=== PATIENT | female | born 1935 | race African-American/Black ===

== ENCOUNTER 2018-07-20 12:37 | Outpatient (CLI) | payer MEDICARE, OTHER ==
--- NOTE | 2018-07-20 14:34 | ULT ---
LIMITED BILATERAL BREAST ULTRASOUND: Date: 07/20/18 PROVIDED CLINICAL HISTORY: Right breast palpable abnormality. FINDINGS: Limited sonographic interrogation was performed of the right breast in the region of palpable concern . There is a large, heterogeneous vascular mass present at the 6 o'clock location of the right breast in the region of palpable concern, measuring at least 4.7 cm in greatest dimension. Sonographic inte rrogation of the right axilla demonstrates an enlarged and cortically thickened right axillary lymph node measuring about 1.6 cm. Limited sonographic interrogation of the upper inner aspect of the left breast demonstrates an angula r, taller than wide, hypoechoic mass measuring about 7.0 mm in greatest dimension. Sonographic interr ogation of the left axilla demonstrates nonenlarged lymph nodes. IMPRESSION: 1. BIRADS Category 5 - Highly suspicious for malignancy. 2. Palpable right breast mass corresponds to a large, heterogeneous mass, and is highly suspicious f or breast malignancy. Enlarged and thickened right axillary lymph node suggests metastatic disease. 3. The 10 o'clock left breast mass is also suspicious for neoplasm. Surgical consultation is recommended. POS: OFF
== END 2018-07-20 12:38 | disposition home or self-care (01) ==
LOC: BICMAMMO 12:37
PROVIDERS: ATTEND Family Medicine
DX: N63.13 Unspecified lump in the right breast, lower outer quadrant (principal); Z80.3 Family history of malignant neoplasm of breast
CPT/HCPCS: 76642 ×2; 77066; G0279

== ENCOUNTER 2018-07-27 14:10 | Outpatient (CLI) | payer MEDICARE, OTHER | END 2018-07-27 14:11 | disposition home or self-care (01) | LOC: BICMAMMO 14:10 | PROVIDERS: ATTEND Specialist | DX: N63.23 Unspecified lump in the left breast, lower outer quadrant (principal) | CPT/HCPCS: 77065; G0279 ==

== ENCOUNTER 2018-08-10 08:56 | Outpatient (CLI) | payer MEDICARE, MEDICAID ==
--- NOTE | 2018-08-10 12:32 | PET ---
PET CT: HISTORY: Bilateral breast cancer. TECHNIQUE: A PET CT was performed from the skull base to the mid thigh after administration of 13 mCi of F18-FDG . FINDINGS: There is a large mass in the right breast which is hypermetabolic with a max SUV value of 8.7. There are prominent bilateral axillary lymph nodes, right greater than left. The largest is seen on the r ight measuring 1.6 cm in size. These lymph nodes on the right are metabolic but not hypermetabolic w ith a max SUV value of 1.9. No internal mammary lymph nodes are identified. No hypermetabolic activ ity is seen within the left breast. There are mildly enlarged bilateral inguinal lymph nodes demonstrating metabolic activity with a max SUV value of 1.8. No suspicious areas of hypermetabolic activity are seen within the neck. No intrathoracic areas of h ypermetabolic activity are seen. No suspicious areas of hypermetabolic activity are seen in the abdo men or pelvis. No suspicious osseous lesions are identified. Degenerative changes are seen in the s pine. Atherosclerotic calcifications are seen in the aorta. IMPRESSION: 1. There is a hypermetabolic right breast mass consistent with a right breast malignancy. 2. There are prominent bilateral axillary lymph nodes, right greater than left. These lymph nodes a re prominent but do not demonstrate hypermetabolic activity. However, the lymph nodes in the right a xilla, in particular, are round and enlarged and are suspicious for metastatic disease. POS: [facility]
== END 2018-08-10 08:57 | disposition home or self-care (01) ==
LOC: PET 08:56
PROVIDERS: ATTEND Internal Medicine Hematology & Oncology
DX: C50.911 Malignant neoplasm of unspecified site of right female breast (principal); C50.912 Malignant neoplasm of unspecified site of left female breast
CPT/HCPCS: 78815; A9552

== ENCOUNTER 2018-09-14 07:30 | Outpatient (CLI) | payer MEDICARE, MEDICAID ==
[2018-09-14 16:12] LABS: #Eosinphils 0.3 thou/uL (0.0-0.7); #Lymphocytes 2.5 thou/uL (1.20-3.40); #Monocytes 0.8 thou/uL (0.11-0.59); %Basophils 0.6 % (0.0-1.0); %Eosinophils 3.8 % (0.0-10.0); %Lymphocytes 32.9 % (21.0-51.0); %Monocytes 10.1 % (0.0-10.0); %Neutrophils 52.7 % (42.0-75.0); Hemoglobin 12.6 g/dL (12.0-16.0); Mean Corpuscular HGB CONC 32.4 g/dL (32.0-36.0); Mean Corpuscular Hemoglobin 30.9 pg (27.0-31.0); Mean Corpuscular Volume 95.3 fL (78.0-98.0); Mean Platelet Volume 8.4 fL (7.4-10.4); Platelet Count 201 thou/uL (130-400); RBC Distribution Width 12.3 % (11.5-14.5); Red Blood Cell (RBC) Count 4.09 mill/uL (4.20-5.40); White Blood Cell (WBC) Count 7.5 thou/uL (4.8-10.8)
[2018-09-14 16:30] LABS: Anion Gap 14 mmol/L (10-20); BUN (Urea Nitrogen) 13 mg/dL (9.8-20.1); Calc. Creatinine Clearance 0 mL/min (70-130); Calcium 9.5 mg/dL (7.8-10.44); Carbon Dioxide 25 mmol/L (23-31); Chloride 106 mmol/L (98-107); Estimated GFR-MDRD 83; Glucose 96 mg/dL (83-110); Potassium 4.3 mmol/L (3.5-5.1); Sodium 141 mmol/L (136-145)
--- NOTE | 2018-09-17 17:26 | EKG ---
Test Reason : Blood Pressure : / mmHG Vent. Rate : 058 BPM Atrial Rate : 058 BPM P-R Int : 192 ms QRS Dur : 088 ms QT Int : 416 ms P-R-T Axes : 041 001 048 degrees QTc Int : 408 ms Sinus bradycardia Cannot rule out Anterior infarct , age undetermined No previous ECGs available Confirmed by DR. Bonnie WARD MD ([id number]) on 09/17/2018 5:26:17 PM Referred By: NANO Confirmed By:DR. Bonnie WARD MD
== END 2018-09-14 07:31 | disposition home or self-care (01) ==
LOC: LABBT 07:30
PROVIDERS: ATTEND Specialist
DX: Z01.818 Encounter for other preprocedural examination (principal); C50.911 Malignant neoplasm of unspecified site of right female breast; C50.912 Malignant neoplasm of unspecified site of left female breast
CPT/HCPCS: 80048; 85025; 93005; 93010

== ENCOUNTER 2018-09-27 07:25 | Inpatient (IN) | payer MEDICARE, MEDICAID ==
[2018-09-27] MEDS ORDERED: Ketorolac Tromethamine 30 MG/ML VIAL ONE (10:47)
--- NOTE | 2018-09-27 11:35 | NM ---
LEFT BREAST LYMPHOSCINTIGRAPHY: Date: 09/27/18 HISTORY: Bilateral breast cancer. Malignant neoplasm of unspecified site of right female breast, malignant meng plasm of unspecified site of left female breast. FINDINGS: Planar images were obtained following the left periareolar injections of 440 microcuries technetium-99m filtered sulfur colloid in divided doses. Focally increased uptake is seen in the left axillary lymph node. IMPRESSION: Kress lymph node in the left axilla. POS: [facility]
[2018-09-27] MEDS ORDERED: Bupivacaine HCl 0.5%/Epinephrine 1:200,000/PF 30 ml Vial ONE (11:49)
[2018-09-27] MEDS ORDERED: Isosulfan Blue 50 MG/5 ML VIAL ONE (11:49)
[2018-09-27] MEDS ORDERED: Famotidine/PF 20 mg/2ml Vial ONE (11:52)
[2018-09-27] MEDS ORDERED: Fentanyl 100 MCG/2 ML VIAL ONE (11:52)
--- NOTE | 2018-09-27 12:45 | RAD ---
TWO VIEW CHEST: Comparison: 05-01-13 Clinical history: Pre-operative evaluation. FINDINGS: There is mild elevation of the left hemidiaphragm. The lungs are grossly clear. Cardiac silhouette is of normal size. Osseous degenerative change is present. IMPRESSION: No focal consolidation. POS: [facility]
[2018-09-27] MEDS ORDERED: Metoclopramide HCl 10 MG/2 ML VIAL ONE (13:14)
[2018-09-27] MEDS ORDERED: ePHEDrine 50 MG/ML VIAL ONE (13:14)
[2018-09-27] MEDS ORDERED: Glycopyrrolate 0.2 MG/ML 5 ML SYRINGE ONE (13:14)
[2018-09-27] MEDS ORDERED: PROPOFOL 200 MG/20 ML VIAL ONE (13:14)
[2018-09-27] MEDS ORDERED: Ondansetron PF 4 MG/2 ML Vial ONE (13:14)
[2018-09-27] MEDS ORDERED: Lidocaine 1% PF 5 ML VIAL ONE (13:14)
[2018-09-27] MEDS ORDERED: Rocuronium Bromide 10 MG/ML (10ML VIAL) ONE (13:14)
[2018-09-27] MEDS ORDERED: Ondansetron HCl/PF 4 MG/2 ML Vial IVP PRN (15:20)
--- NOTE | 2018-09-27 17:05 | PDOC.EVN ---
Event Note - Event Note Event Note: SPENCERGYMartha OnCall note: I was called to OR [address] Vuong for abnormal vulvar tissue. BXs sent Family aware Please see my full dictation
[2018-09-27] MEDS ORDERED: [UNRECOGNIZED DRUG - CODE] SLOW IVP PRN (17:10)
[2018-09-27] MEDS ORDERED: Dextrose 50% Abboject 50 ML SYRINGE SLOW IVP PRN (17:10)
[2018-09-27] MEDS ORDERED: Ondansetron PF 4 MG/2 ML Vial IVP PRN (17:10)
[2018-09-27] MEDS ORDERED: Dextrose 5% in Water 1,000 ML IV PRN (17:10)
[2018-09-27] MEDS ORDERED: Promethazine HCl 25 MG/ML VIAL IM PRN (17:10)
[2018-09-27] MEDS ORDERED: hydrALAZINE 20 MG/ML VIAL SLOW IVP PRN (17:10)
[2018-09-27 17:27] VITALS: BMI 25.8
[2018-09-27] MEDS ORDERED: Lactated Ringer's 1,000 ML IV SCH (18:15)
[2018-09-27] MEDS: Docusate 100 MG CAP PO SCH (20:40)
[2018-09-27] MEDS: Donepezil HCl 10 MG TAB PO SCH (20:40)
[2018-09-27] MEDS: Famotidine 20 MG TAB PO SCH (20:41)
[2018-09-27] MEDS ORDERED: Lactated Ringer's 500 ML IV SCH (23:30)
[2018-09-27] MEDS: Lactated Ringer's 1,000 ML IV SCH (23:35)
[2018-09-27 23:38] LABS: #Lymphocytes 1.2 thou/uL (1.20-3.40); #Monocytes 1.2 thou/uL (0.11-0.59); %Eosinophils 0.3 % (0.0-10.0); %Lymphocytes 9.6 % (21.0-51.0); %Monocytes 9.6 % (0.0-10.0); %Neutrophils 80.5 % (42.0-75.0); Hemoglobin 8.8 g/dL (12.0-16.0); Mean Corpuscular HGB CONC 31.9 g/dL (32.0-36.0); Mean Corpuscular Hemoglobin 31.1 pg (27.0-31.0); Mean Corpuscular Volume 97.6 fL (78.0-98.0); Mean Platelet Volume 8.1 fL (7.4-10.4); Platelet Count 179 thou/uL (130-400); RBC Distribution Width 12.3 % (11.5-14.5); Red Blood Cell (RBC) Count 2.83 mill/uL (4.20-5.40); White Blood Cell (WBC) Count 12.4 thou/uL (4.8-10.8)
[2018-09-27 23:59] LABS: Anion Gap 17 mmol/L (10-20); BUN (Urea Nitrogen) 16 mg/dL (9.8-20.1); Calc. Creatinine Clearance 48 mL/min (70-130); Calcium 8.6 mg/dL (7.8-10.44); Carbon Dioxide 21 mmol/L (23-31); Chloride 104 mmol/L (98-107); Estimated GFR-MDRD 58; Glucose 148 mg/dL (83-110); Potassium 4.5 mmol/L (3.5-5.1); Sodium 137 mmol/L (136-145)
--- NOTE | 2018-09-28 00:35 | PDOC.EVN ---
Event Note - Event Note Event Note: OBGYN INTRAOP CONSULT on 09/27/18 Time: approx 1515 Location OR3 Requesting : Luke I am still awaiting my dictated report space planner. However, to prevent delay in the record, I am completing this entry: This patient is an 83 yo AA female undergoing double mastectomy for breast CA. I was called because during placement of her dejesus catheter, the RN saw abnormal skin at the vulvar area. I was called at the end of the case for possible BX. The external vulvar area has white thickened, fragile tissue suspicious for vulvar CA. There is also a frond of suspected condyloma on the right side. This tissue is indurated and bleeds easily on contect. I sent several biopsies of this tissue to path. I confirmed that pathology had the samples. Order for eval placed by me. I discussed these BXs with the family, with Dr Vuong, after the procedure. They are aware that I/we suspect vulcar abnormalities/possible CA. Await results. Area rendered hemostatic with AgNo3 sticks and cautery on bovie mode.
[2018-09-28 06:11] LABS: #Lymphocytes 1.7 thou/uL (1.20-3.40); #Monocytes 0.9 thou/uL (0.11-0.59); #Neutrophils 6.3 thou/uL (1.40-6.50); %Basophils 0.4 % (0.0-1.0); %Eosinophils 0.2 % (0.0-10.0); %Lymphocytes 18.8 % (21.0-51.0); %Monocytes 10.4 % (0.0-10.0); %Neutrophils 70.2 % (42.0-75.0); Hemoglobin 8.6 g/dL (12.0-16.0); Mean Corpuscular HGB CONC 32.3 g/dL (32.0-36.0); Mean Corpuscular Hemoglobin 31.4 pg (27.0-31.0); Mean Corpuscular Volume 97.2 fL (78.0-98.0); Mean Platelet Volume 8.1 fL (7.4-10.4); Platelet Count 189 thou/uL (130-400); RBC Distribution Width 12.4 % (11.5-14.5); Red Blood Cell (RBC) Count 2.74 mill/uL (4.20-5.40)
[2018-09-28 06:32] LABS: Anion Gap 16 mmol/L (10-20); BUN (Urea Nitrogen) 20 mg/dL (9.8-20.1); Calc. Creatinine Clearance 48 mL/min (70-130); Calcium 8.8 mg/dL (7.8-10.44); Carbon Dioxide 22 mmol/L (23-31); Chloride 104 mmol/L (98-107); Estimated GFR-MDRD 59; Glucose 137 mg/dL (83-110); Potassium 4.9 mmol/L (3.5-5.1); Sodium 137 mmol/L (136-145)
--- NOTE | 2018-09-28 08:24 | CON ---
DATE OF CONSULTATION: 09/17/2018 TIME OF EVALUATION: Roughly 15:15, until 15:45. LOCATION: OR, #3. REASON FOR CONSULT: In brief, I was consulted by Dr. Heck, who was doing a double mastectomy on this elderly patient (83-year-old) with dementia and known breast cancer. During the placement of the Sofia catheter by the primary OR team, the dressmaking teacher nurse found abnormal vaginal tissue, which was discolored and indurated. It was also bleeding. Because of this external vulvar abnormality, Gynecology was consulted for biopsies. I arrived to the room after the patient had completed the double mastectomy and was being wrapped with the chest bandage. The patient's Sofia catheter was still in place during my assessment. We placed the patient in frogleg position and proceeded to do multiple biopsies (deep dermal) with a scalpel. The vulvar area had bilateral labia minora and majora discoloration with a firm, indurated, and grossly abnormal appearing tissue. There was also a small area that was suspicious for condyloma in the center and this was also excised. Biopsies were labeled right side and left side and sent to pathology. 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 At the end of the procedure, I rendered the area hemostatic with silver nitrate sticks as well as Bovie cautery using a setting of 20. No bleeding was noted. It is important to note that the area was prepped with Betadine prior to biopsies to maintain some sort of sterile technique. Dr. Heck and I discussed these findings with the patient's family in the lobby. I have a contact number for her daughter, whose name is "Tomorrow" and whose phone #[phone]. We will follow up the results and make appropriate followup at that time. I did tell the family that the patient will need referral to Gynecology, Oncology, likely Natacha Ramon, in the [place] if this is in fact a malignancy again. Job ID: [id number]
[2018-09-28] MEDS: Aspirin 81 mg Enteric Coated Tablet PO SCH (10:09)
[2018-09-28] MEDS: Famotidine 20 MG TAB PO SCH ×2 (10:09→21:07)
[2018-09-28] MEDS: Docusate 100 MG CAP PO SCH ×2 (10:09→21:07)
[2018-09-28] MEDS: Donepezil HCl 10 MG TAB PO SCH ×2 (10:09→21:07)
[2018-09-28] MEDS: HYDROcodone/Acetaminophen 7.5/325 mg Tablet PO PRN (10:09)
[2018-09-28] MEDS: Anastrozole 1 MG TAB PO SCH (14:00)
--- NOTE | 2018-09-28 14:01 | PDOC.EVN ---
Event Note - Event Note Event Note: Here to f/u on Dr. Romero's consult from yesterday. Pt. resting comfortably. Daughter with pt. in room. VSS, AF BP= 108/53, P= 76, R= 16 Pelvic; no active bleeding from vulvar bx sites. Plan: Awaiting vulvar biopsy results.
--- NOTE | 2018-09-28 14:20 | PRG ---
DATE OF SERVICE: 09/28/2018 SUBJECTIVE: Ms. Reynoso is postoperative day #1 from a bilateral mastectomy. Axillary node dissection was performed on the right and a sentinel lymph node biopsy was performed on the left. Overnight, she had an episode of hypotension and tachycardia. Her pulse rate was apparently over 110 and her blood pressure was 85/60. At that time, she was treated with courses of fluid bolus and increased her IV fluid rate. Hemoglobin was checked last night and found to be 8.8. 7 hours later this morning, it is stable at 8.6. Her platelet count is normal at 189. She had low urine output overnight and continues to have diminished urine output. She has no complaints. She denies pain either at her mastectomy site or at the site of her vaginal biopsy. OBJECTIVE: VITAL SIGNS: Now, she is afebrile, pulse 76, and blood pressure 108/53. LUNGS: Clear to auscultation. CARDIAC: Regular rate and rhythm. ABDOMEN: Soft. Mastectomy circumferential dressing is intact. Drains were examined and found to have a moderate amount of sanguinous drainage. ASSESSMENT: She is doing well following bilateral mastectomy. She had some hypovolemia secondary to inadequate fluid intake as well as blood loss from surgery. She has some postoperative anemia subsequently. For now, I would recommend observation until tomorrow, making sure that there are no further issues. I am going to give her another fluid bolus of lactated Ringer now and recheck her labs in the morning. If everything is stable, I would anticipate discharge home then. In regard to her vaginal biopsy, this is still pending. 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 Job ID: [id number]
[2018-09-28] MEDS ORDERED: Lactated Ringer's 1,000 ML IV SCH (14:45)
[2018-09-28] MEDS: Lactated Ringer's 1,000 ML IV SCH (16:00)
[2018-09-28] MEDS: Lisinopril 20 MG TAB PO SCH (19:30)
[2018-09-29 05:07] LABS: Hemoglobin 5.9 g/dL (12.0-16.0); Mean Corpuscular HGB CONC 33.3 g/dL (32.0-36.0); Mean Corpuscular Hemoglobin 31.5 pg (27.0-31.0); Mean Corpuscular Volume 94.4 fL (78.0-98.0); Mean Platelet Volume 7.7 fL (7.4-10.4); Platelet Count 137 thou/uL (130-400); RBC Distribution Width 12.3 % (11.5-14.5); Red Blood Cell (RBC) Count 1.87 mill/uL (4.20-5.40)
[2018-09-29 05:11] LABS: Anion Gap 10 mmol/L (10-20); BUN (Urea Nitrogen) 15 mg/dL (9.8-20.1); Calc. Creatinine Clearance 66 mL/min (70-130); Calcium 8.4 mg/dL (7.8-10.44); Carbon Dioxide 28 mmol/L (23-31); Chloride 104 mmol/L (98-107); Estimated GFR-MDRD 85; Glucose 101 mg/dL (83-110); Sodium 138 mmol/L (136-145)
[2018-09-29 05:33] LABS: #Basophils 0.1 thou/uL (0.0-0.2); #Lymphocytes 2.9 thou/uL (1.20-3.40); %Basophils 0.7 % (0.0-1.0); %Eosinophils 0.5 % (0.0-10.0); %Lymphocytes 41.8 % (21.0-51.0); %Monocytes 14.6 % (0.0-10.0); %Neutrophils 42.4 % (42.0-75.0); Platelet Morphology Comment Appears Adequate
[2018-09-29] MEDS ORDERED: Furosemide 20 MG/2 ML VIAL SLOW IVP SCH (06:15)
--- NOTE | 2018-09-29 08:44 | PRG ---
DATE OF SERVICE: 09/29/2018 SUBJECTIVE: Postop day 2, bilateral mastectomy. Ms. Reynoso has no complaints. Minimal pain. Family states that she was a little bit unstable when they got her out of bed yesterday. Her hemoglobin dropped this morning. She is getting blood. OBJECTIVE: VITAL SIGNS: Pulse 104, blood pressure 118/67, respirations 16. She has had multiple voids. Drain output is 210 and 260 for the day yesterday. Her flaps are viable. The drain output is serosanguineous. LABORATORY DATA: Hemoglobin is 5.9, platelet count is 137. Creatinine is normal. ASSESSMENT: Postoperative day 2 mastectomy. PLAN: She is going to get 2 units of blood this morning. We will make sure that they get her up and mobilize her this afternoon. I suspect she will be ready for discharge tomorrow. Job ID: [id number]
[2018-09-29] MEDS: Docusate 100 MG CAP PO SCH ×2 (09:36→21:00)
[2018-09-29] MEDS: Donepezil HCl 10 MG TAB PO SCH ×2 (09:36→21:00)
[2018-09-29] MEDS: Anastrozole 1 MG TAB PO SCH (09:37)
[2018-09-29] MEDS: Famotidine 20 MG TAB PO SCH ×2 (09:37→21:00)
[2018-09-29] MEDS: Aspirin 81 mg Enteric Coated Tablet PO SCH (09:37)
[2018-09-29] MEDS: Lisinopril 20 MG TAB PO SCH (11:33)
[2018-09-29] MEDS: Lactated Ringer's 1,000 ML IV SCH (14:51)
[2018-09-30] MEDS: HYDROcodone/Acetaminophen 7.5/325 mg Tablet PO PRN (05:18)
[2018-09-30 07:49] LABS: Hemoglobin 8.6 g/dL (12.0-16.0)
[2018-09-30] MEDS: Docusate 100 MG CAP PO SCH (08:58)
[2018-09-30] MEDS: Anastrozole 1 MG TAB PO SCH (08:58)
[2018-09-30] MEDS: Donepezil HCl 10 MG TAB PO SCH (08:59)
[2018-09-30] MEDS: Lisinopril 20 MG TAB PO SCH (08:59)
[2018-09-30] MEDS: Aspirin 81 mg Enteric Coated Tablet PO SCH (08:59)
[2018-09-30] MEDS: Famotidine 20 MG TAB PO SCH (09:00)
--- NOTE | 2018-09-30 10:40 | DIS ---
DATE OF ADMISSION: 09/27/2018 DATE OF DISCHARGE: 09/30/2018 ADMITTING DIAGNOSIS: Bilateral breast cancer. DISCHARGE DIAGNOSIS: Bilateral breast cancer. PROCEDURE PERFORMED: Bilateral mastectomy by Dr. Heck without complication. CONDITION ON DISCHARGE: Improved. STAFF: Isaias Bryan MD. HOSPITAL COURSE: On postop day 2, the patient's hemoglobin did go down to below 6. Decision was made to give a few units of blood. She had some mild dizziness prior to that. Post transfusion, the patient did well and on postop day 3, the patient is ambulatory without difficulty. She is to be discharged to home. Instructions given to family on drain care. Prescription for [place] to be sent over to the [facility], [facility] [place] and [facility]. Follow up with Dr. Heck next week for drain removal. Job ID: [id number]
[2018-09-30 12:06] VITALS: TEMP 98.2
[2018-09-30 12:13] VITALS: BP 159/79
--- NOTE | 2018-09-30 17:22 | OP ---
DATE OF PROCEDURE: 09/27/2018 PREOPERATIVE DIAGNOSES: Bilateral breast cancer with a large right neglected cancer and multiple positive right axillary nodes. POSTOPERATIVE DIAGNOSES: Bilateral breast cancer with a large right neglected cancer and multiple positive right axillary nodes. PROCEDURES PERFORMED: Left axillary sentinel lymph node biopsy, left simple mastectomy, and right modified radical mastectomy. ANESTHESIA: General endotracheal. INDICATIONS: The patient is an 83-year-old black female with dementia. She presented with a large right breast neglected cancer. Axillary examination revealed several positive lymph nodes. She was subsequently found to have a much smaller left breast cancer with no evidence of lymphadenopathy on the left. She is taken to the operating room at this time for surgery as outlined above. DESCRIPTION OF PROCEDURE: Informed consent was obtained. Left breast lymphoscintigraphy was performed identifying left axillary sentinel lymph nodes. She was taken to the operating room, where general anesthesia was obtained with the patient in supine position. Bilateral breasts were prepped with ChloraPrep and draped in sterile fashion. Attention was turned first to the left breast. A 5 mL of Lymphazurin was infiltrated in the subdermal periareolar tissue on the left. This was massaged for 5 minutes. Attention was then turned to the left axilla. A semi-elliptical incision was created across the anterior aspect of the left breast in the typical fashion for a mastectomy. Dissection was carried through skin and subcutaneous tissue. All dissection was carried out using the plasma blade. In the lateral aspect of the incision, the Neoprobe was utilized to identify areas of maximum radio intensity. I dissected into the axilla and identified 2 separate sentinel lymph nodes. These were each blue-stained and radioactive. They were removed after dividing all investing tissue between clamps and 3-0 silk ties. There was no area of significant remaining radio activity or blue dye within the axilla. Attention was then turned to the mastectomy. Flaps were raised superiorly, inferiorly, and medially. The breast was then swept in a medial to lateral fashion off the chest wall toward the axilla. The axillary tail of the breast was removed, but no additional axillary tissue. The specimen was oriented with a suture and passed off the field. The wound was irrigated with saline. All irrigant was aspirated. Meticulous hemostasis was ensured. A #19 round fluted drain was placed within the wound and brought out laterally and inferiorly, where it secured with 3-0 nylon suture. The skin edges were tailored to allow for appropriate closure without redundant skin or fatty tissue. Dog-ear correction was fashioned within the axilla to minimize an axillary bump. The wound was then closed in layers with 3-0 Vicryl and skin nathaniel. Attention was then turned to the right breast. The large neglected breast cancer was just inferior to the nipple. A semi-elliptical incision was created across the breast incorporating the nipple-areolar complex and the obvious malignancy. The incision was swung significantly to the inferior aspect of the breast. Dissection was carried through the skin and subcutaneous tissue. Again, the plasma blade was utilized. Dissection was carried down to the chest wall inferiorly, superiorly, and medially and again, the breast was swept off the chest wall in a medial to lateral fashion. At the lateral aspect of the incision, attention was turned to the axilla. Dissection was carried up along the pectoralis muscles into the axilla. I identified the axillary vein. The fatty and lymphatic tissue was swept out of the axilla inferior to the vein. I identified the thoracodorsal and long thoracic nerves. These were each spared throughout the operation. The tissue was removed in continuity with the tail of the breast tissue. It was tagged for orientation and submitted to Pathology. All lymphatic tissue was divided between hemoclips as they were removed. Meticulous hemostasis was obtained with electrocautery. The wound was irrigated with sterile water. Two separate #19 round fluted drains were placed, one within the axilla and one across the chest wall, and these were each secured externally with 3-0 nylon. The skin incision was tailored as the previous site had been. The wound was closed in layers with 3-0 Vicryl and skin nathaniel. A Xeroform gauze with fluffed gauze dress was applied over the incision sites. A Clarice wrap was then placed circumferentially around the chest. There were no complications. Blood loss was negligible. The patient tolerated the procedure well, was taken to recovery room in stable condition. Job ID: [id number]
--- NOTE | 2018-10-01 17:20 | PQF ---
WENDY BLANCHARD MICHAEL W MD [id number] SURG A- [id number] CLINICAL DOCUMENTATION IMPROVEMENT CLARIFICATION FORM: ICD-10 Updated PLEASE DO AN ADDENDUM TO THE PROGRESS NOTE WITH ANY DOCUMENTATION UPDATES OR ADDITIONS AND CARRY THROUGH TO DC SUMMARY. THANK YOU. DATE: 10-01-18 ATTN: DR. MCGILL Please exercise your independent, professional judgment in responding to the clarification form. Clinical indicators are provided on the bottom of this form for your review Please check appropriate box(s): [ ] Acute blood loss anemia [ x ] Post-op anemia related to acute blood loss [ ] Anemia due to Neoplasm: [ ] Primary [ ] Secondary [ ] Other diagnosis [ ] Unable to determine In addition, please specify: Present on Admission (POA): [ ] Yes [ x ] No [ ] Unable to determine For continuity of documentation, please document condition throughout progress notes and discharge summary. Thank You. CLINICAL INDICATORS - SIGNS / SYMPTOMS / LABS 2-15 (NANO) PN: * EPISODE OF HYPOTENSION AND TACHYCARDIA - PULSE RATE OVER 110; BP 85/60 * LOW URINE OUTPUT LAST NIGHT AND CONTINUE TO HAVE DIMINISHED URINE OUTPUT * SHE HAD HYPOVOLEMIA SECONDARY TO INADEQUATE FLUID INTAKE WELL BLD LOSS FROM SURGERY * POSTOPERATIVE ANEMIA SUBSEQUENTLY LABS: Hmg Hct 2-14 8.8 27.6 2-15 8.6 26.6 2-16 5.9 17.7 2-17 8.6 26.0 RISK FACTORS 2-14 (NANO) OP NOTE: BILATERAL BREAST CANCER W/ LARGER RIGHT NEGLECTED CANCER AND MULTIPLE POSITIVE RIGHT AXILLARY NODES * LEFT AXILLARY SENTINEL LYMPH NODE BIOPSY, LEFT SIMPLE MASTECTOMY, AND RIGHT MODIFIED RADICAL MASTECTOMY * BLD LOSS NEGLIGIBLE TREATMENTS: 2-15 (NANO) PN: * IVF BOLUS OF LR * RECHECK LABS IN AM 2-16 (PARCHUCK) PN: 2UNITS PRBC THANK YOU, TONIA (This form is maintained as a part of the permanent medical record) 2014 [employer]. All Rights Reserved Tonia Emerson RN, BS [email or web address] Cell Note - At the time this was sent, patient has already been discharged. D/ C summary has already been done. MTDD
== END 2018-09-30 12:00 | disposition home or self-care (01) | DRG 580 ==
LOC: SDC 07:25 → SURG A 16:35
PROVIDERS: ADMIT Specialist; ATTEND Specialist
PROC: 0UBMXZX Excision of Vulva, External Approach, Diagnostic (ICD-10-PCS; principal; 2018-09-27)
PROC: 0HTV0ZZ Resection of Bilateral Breast, Open Approach (ICD-10-PCS; 2018-09-27)
PROC: 07B60ZX Excision of Left Axillary Lymphatic, Open Approach, Diagnostic (ICD-10-PCS; 2018-09-27)
PROC: C71L1ZZ Planar Nuclear Medicine Imaging of Upper Chest Lymphatics using Technetium 99m (Tc-99m) (ICD-10-PCS; 2018-09-27)
PROC: 07B50ZX Excision of Right Axillary Lymphatic, Open Approach, Diagnostic (ICD-10-PCS; 2018-09-27)
PROC: 30233N1 Transfusion of Nonautologous Red Blood Cells into Peripheral Vein, Percutaneous Approach (ICD-10-PCS; 2018-09-29)
DX: C50.912 Malignant neoplasm of unspecified site of left female breast (principal); D62 Acute posthemorrhagic anemia; C77.3 Secondary and unspecified malignant neoplasm of axilla and upper limb lymph nodes; C50.911 Malignant neoplasm of unspecified site of right female breast; F03.90 Unspecified dementia, unspecified severity, without behavioral disturbance, psychotic disturbance, mood disturbance, and anxiety; C51.9 Malignant neoplasm of vulva, unspecified; Z91.013 Allergy to seafood; Z79.899 Other long term (current) drug therapy
CPT/HCPCS: 36415; 36430; 71046; 78195; 80048; 85014; 85018; 85025; 86850; 86900; 86901; 88305; 88307; 88309; 88342; A9541; J0131; J0670; J1885; J1940; J2001; J2405; J2704; J2765; J3010; J3490; P9016; Q9968; S0028

== ENCOUNTER 2018-10-12 19:21 | Observation (INO) | payer MEDICARE, MEDICAID ==
[~2018-10-12 19:21] MED LIST: ISOVUE-370 76%-LOCM 1 ML ONE
[2018-10-12] MEDS ORDERED: Aspirin Chewable 81 MG TAB ONE (21:37)
[2018-10-12 21:53] LABS: CKMB 2.8 ng/mL (0-6.6)
--- NOTE | 2018-10-12 22:28 | CT ---
CONTRAST ENHANCED CTA CHEST 10/12/18 HISTORY: Atrial fibrillation. Chest pain. Flu-like symptoms. Contrast enhanced CTA of the chest is performed. 2D and 3D reconstructed images performed on an [employer] 3D workstation. The patient has had bilateral mastectomies. No evidence of pleural or pericardial effusions seen. Bilateral surgical drains in place. No evidence of filling defects seen in the pulmonary arteries to suggest pulmonary emboli. IMPRESSION: No evidence of pulmonary emboli seen. POS: [facility]
[2018-10-13] MEDS ORDERED: Ondansetron PF 4 MG/2 ML Vial IVP PRN (01:21)
[2018-10-13] MEDS ORDERED: Ondansetron ODT 4 MG TAB SL PRN (01:21)
[2018-10-13 01:35] VITALS: BMI 25.7
[2018-10-13 03:20] LABS: CKMB 2.2 ng/mL (0-6.6)
[2018-10-13] MEDS: Acetaminophen 325 MG TAB PO PRN (03:39)
[2018-10-13] MEDS ORDERED: Aspirin 325 MG TAB PO SCH (08:00)
[2018-10-13] MEDS ORDERED: Acetaminophen 500 MG TAB PO PRN (08:03)
[2018-10-13] MEDS ORDERED: Diabetic Tussin 200 MG/10 ML UDCUP PO PRN (08:03)
[2018-10-13] MEDS ORDERED: Prevnar 13-Val Conj/PF 0.5 ML SYRINGE IM ONE (09:00)
[2018-10-13] MEDS ORDERED: Lisinopril 20 MG TAB PO SCH (09:00)
[2018-10-13] MEDS ORDERED: Oseltamivir 75 MG CAP PO SCH (09:00)
--- NOTE | 2018-10-13 09:11 | HP ---
CHIEF COMPLAINT: Cough, fever. HISTORY OF PRESENT ILLNESS: The patient is an 83-year-old female with past medical history significant for hypertension, dementia, and invasive ductal cancer of the right and left breast, status post bilateral mastectomy on September 27, 2018, who presented to the [place] ER with complaints of cough and fever. Her daughter is at bedside and does provide some of the history. The patient's symptoms began on night, less than 48 hours ago. Her cough is mildly productive. She denies any nausea, vomiting, chest pain, or shortness of breath. Upon arrival to the [place] ER, influenza screen was positive for influenza A. Her EKG showed sustained atrial fibrillation with ventricular rate of 123 beats per minute with no evidence of ischemic ST changes. She was given 20 mg of IV Cardizem in the ER, and promptly converted to sinus rhythm. The patient's AFib has been largely asymptomatic. She denies any chest pain or palpitations. She has not had any dizziness or lightheadedness. She was transferred to our facility for higher level of care. Upon discussion with the daughter, the patient has not had any prior diagnosis of AFib. She has not had any prior cardiac workup or has seen a concrete block mason in the past. Her chest x-ray in [place] showed no evidence of any consolidation, there was no evidence of any acute cardiopulmonary process. ALLERGIES: SHELLFISH. HOME MEDICATIONS: 1. Donepezil 10 mg p.o. b.i.d. 2. Lisinopril 20 mg orally daily. 3. Anastrozole 1 mg p.o. daily. 4. Ascorbic acid 500 mg daily. 5. Aspirin 81 mg daily. 6. Multivitamin 1 daily. PAST MEDICAL HISTORY: Invasive ductal cancer of both the right and left breast, status post double mastectomy on September 27. She did also undergo recent washout and evacuation of hematoma last week. 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 PAST SURGICAL HISTORY: Previous eye surgery, double mastectomy as mentioned above. FAMILY HISTORY: Her mother and father are both . She has no history of coronary artery disease or [place] in her family. She does have family history of cancer in her siblings. SOCIAL HISTORY: The patient is a former smoker. She does not use alcohol or do any illicit drugs. REVIEW OF SYSTEMS: CONSTITUTIONAL: Positive for fever. ENT: Negative for injury, pain, or discharge. NECK: Negative for lymphadenopathy. CARDIOVASCULAR: Negative for chest pain, palpitations, shortness of breath, or edema. RESPIRATORY: Positive for cough. Negative for wheezing, and shortness of breath. ABDOMEN/GASTROINTESTINAL: Negative for any abdominal pain, nausea, vomiting, diarrhea, or constipation. BACK: Negative for injury or pain. SKIN: Negative for rash and discoloration. NEURO: Negative for altered mental status or dizziness. PHYSICAL EXAMINATION: VITAL SIGNS: Blood pressure 127/60, temperature 100.3. CONSTITUTIONAL: Awake, alert, nontoxic. No acute distress. HEAD AND FACE: Normocephalic and atraumatic. ENT: Mucous membranes are moist. NECK: No JVD. No lymphadenopathy. RESPIRATORY: Regular respiratory rate and pattern, somewhat decreased vesicular breath sounds bilaterally. No rhonchi or crackles. ABDOMEN: Positive bowel sounds. Soft, nontender. SKIN: Warm and dry with normal turgor. MUSCULOSKELETAL: The patient does have bilateral mastectomy scars that are well healed with nathaniel still in place. The surgical incisions are well approximated. Bilateral drains are still in place with a small amount of serosanguinous fluid. CARDIOVASCULAR: S1 and S2. Regular rate and rhythm. No appreciable murmurs, rubs, or gallops. NEURO: Nonfocal. EXTREMITIES: No edema. +2 DP pulses bilaterally. IMAGING: Chest x-ray was negative for any acute cardiopulmonary process. CTA showed no evidence of pleural or pericardial effusions and no evidence of pulmonary emboli. ASSESSMENT: 1. New-onset atrial fibrillation in the setting of acute illness; with CHADS- VASc score of 4, status post spontaneous conversion to normal sinus rhythm. 2. Influenza A. 3. Invasive ductal cancer of the right and left breast, status post bilateral mastectomy on September 27, 2018, with drain still in place. 4. Hypertension. 5. Dementia. 6. History of emphysema. PLAN: Cardiology consult is pending. We will obtain a 2D echocardiogram. We will start Tamiflu as her flu symptoms began less than 48 hours ago. We will continue her home mediations and await Cardiology recommendations. Repeat lactic acid, CMP, and CBC. Gentle hydration. Given her recent surgery, hematoma evacuation, and the fact that drains are still in place, initiation of anticoagulation may be complicated and not outweigh the risk of bleeding. All care discussed with Dr. Garcia and he agrees with plan. Job ID: [id number] [facility]
[2018-10-13] MEDS: Donepezil HCl 10 MG TAB PO SCH ×2 (09:14→21:57)
[2018-10-13] MEDS: Ascorbic Acid 500 mg Chewable Tablet PO SCH (09:15)
[2018-10-13] MEDS: Anastrozole 1 MG TAB PO SCH (09:15)
[2018-10-13 13:39] LABS: #Eosinphils 0.1 thou/uL (0.0-0.7); #Lymphocytes 0.6 thou/uL (1.20-3.40); #Monocytes 0.4 thou/uL (0.11-0.59); #Neutrophils 1.8 thou/uL (1.40-6.50); %Basophils 0.2 % (0.0-1.0); %Eosinophils 2.3 % (0.0-10.0); %Lymphocytes 22.1 % (21.0-51.0); %Monocytes 13.6 % (0.0-10.0); %Neutrophils 61.8 % (42.0-75.0); Hemoglobin 10.5 g/dL (12.0-16.0); Mean Corpuscular HGB CONC 31.7 g/dL (32.0-36.0); Mean Corpuscular Volume 97.9 fL (78.0-98.0); Mean Platelet Volume 7.4 fL (7.4-10.4); Platelet Count 268 thou/uL (130-400); RBC Distribution Width 14.2 % (11.5-14.5); Red Blood Cell (RBC) Count 3.37 mill/uL (4.20-5.40); White Blood Cell (WBC) Count 2.9 thou/uL (4.8-10.8)
[2018-10-13 13:58] LABS: ALT (SGPT) 10 U/L (8-55); AST (SGOT) 24 U/L (5-34); Albumin 3.2 g/dL (3.4-4.8); Alkaline Phosphatase 41 U/L (40-150); Anion Gap 13 mmol/L (10-20); BUN (Urea Nitrogen) 14 mg/dL (9.8-20.1); Bilirubin, Total 0.2 mg/dL (0.2-1.2); Calc. Creatinine Clearance 57 mL/min (70-130); Calcium 8.8 mg/dL (7.8-10.44); Carbon Dioxide 20 mmol/L (23-31); Chloride 105 mmol/L (98-107); Estimated GFR-MDRD 71; Glucose 109 mg/dL (83-110); Magnesium 1.7 mg/dL (1.6-2.6); Potassium 4.1 mmol/L (3.5-5.1); Protein, Total 6.2 g/dL (6.0-8.3); Sodium 134 mmol/L (136-145)
[2018-10-13] MEDS: Sodium Chloride 0.9% 1,000 ML IV SCH (13:58)
--- NOTE | 2018-10-13 21:33 | CON ---
DATE OF CONSULTATION: HISTORY OF PRESENT ILLNESS: Susan Reynoso is an 83-year-old black female, who underwent bilateral mastectomy on September 27 for ductal carcinoma of the breast. On October 06, she underwent evacuation of hematoma from the left mastectomy site. She was discharged and then began to have a cough. She denies any nausea , vomiting, chest pain or shortness of breath. Influenza screen in the [facility] was positive for influenza A. Also, EKG showed atrial fibrillation with ventricular rate of 122 per minute. She was given 20 mg of IV Cardizem in the emergency room and promptly converted to sinus rhythm. She does state that she did felt her heart beating rapidly. She apparently has never had atrial fibrillation in the past and has never had any significant cardiac problems. Chest x-ray was unremarkable. Chest and thorax CTA revealed no evidence of pulmonary emboli. She has continued to remain in sinus rhythm since admission here. PAST MEDICAL HISTORY: Remarkable for hypertension, dementia, bilateral ductal carcinoma of the breast. She also has squamous cell carcinoma of the vulva. MEDICATIONS: 1. Arimidex q.a.m. 2. Aspirin 81 daily. 3. Donepezil 10 mg b.i.d. 4. Lisinopril 20 mg q.a.m. 5. Multivitamin daily. ALLERGIES: SHELLFISH. SHE WILL DEVELOP RASH. OPERATIONS: Eye surgery, double mastectomy. SOCIAL HISTORY: She stopped smoking 21 years ago. She does not drink alcohol. FAMILY HISTORY: Negative for coronary artery disease. REVIEW OF SYSTEMS: Difficult to obtain with the patient's dementia. PHYSICAL EXAMINATION: VITAL SIGNS: Blood pressure 113/56, pulse of 73. HEENT: PERRL. NECK: Supple. CHEST: Clear. CARDIOVASCULAR: S1, S2 normal without any S3, S4, or murmurs. ABDOMEN: Normal bowel sounds without tenderness. EXTREMITIES: Revealed no clubbing, cyanosis, or edema. NEUROLOGICAL: Grossly intact except for the dementia. LABORATORY DATA: EKG in [place] revealed atrial fibrillation with rapid ventricular response of 123 per minute. White count 2900, hemoglobin 10.5, hematocrit 33.0, and platelets 268,000. Sodium 134, potassium 4.1, chloride 105 , carbon dioxide 20, BUN 14, creatinine 0.92, troponin I is 0.053. TSH is normal. BNP 130.3. Echocardiogram revealed an ejection fraction of 60% to 65% with evidence of diastolic dysfunction, mild mitral regurgitation and mild tricuspid regurgitation. IMPRESSION: 1. New onset atrial fibrillation converted with Cardizem 20 mg intravenously. She had a CHADS-VASc score of 4. 2. Influenza A. 3. Status post bilateral mastectomy for invasive ductal carcinoma. 4. Hypertension. 5. Dementia. 6. Former smoker. PLAN: At the present time, she has been somewhat hypertensive. I feel that it would be best to change her from lisinopril to a beta ludwig for hopefully suppressed atrial fibrillation going forward. With recent surgery and operation for drainage of hematoma, I would be somewhat hesitant to anticoagulate her at this time. I will continue to follow the patient with you. Job ID: [id number] [facility]
[2018-10-13] MEDS: Oseltamivir 75 MG CAP PO SCH (21:57)
[2018-10-14] MEDS: Sodium Chloride 0.9% 1,000 ML IV SCH ×2 (00:13→11:01)
[2018-10-14 05:43] LABS: #Lymphocytes 1.1 thou/uL (1.20-3.40); #Monocytes 0.6 thou/uL (0.11-0.59); #Neutrophils 2.6 thou/uL (1.40-6.50); %Basophils 0.2 % (0.0-1.0); %Eosinophils 0.5 % (0.0-10.0); %Lymphocytes 25.7 % (21.0-51.0); %Monocytes 12.9 % (0.0-10.0); %Neutrophils 60.6 % (42.0-75.0); Hemoglobin 9.7 g/dL (12.0-16.0); Mean Corpuscular HGB CONC 31.6 g/dL (32.0-36.0); Mean Corpuscular Hemoglobin 30.9 pg (27.0-31.0); Mean Corpuscular Volume 98.1 fL (78.0-98.0); Mean Platelet Volume 7.1 fL (7.4-10.4); Platelet Count 242 thou/uL (130-400); Red Blood Cell (RBC) Count 3.13 mill/uL (4.20-5.40); White Blood Cell (WBC) Count 4.3 thou/uL (4.8-10.8)
[2018-10-14 06:05] LABS: Anion Gap 10 mmol/L (10-20); BUN (Urea Nitrogen) 8 mg/dL (9.8-20.1); Calc. Creatinine Clearance 72 mL/min (70-130); Calcium 8.1 mg/dL (7.8-10.44); Carbon Dioxide 23 mmol/L (23-31); Chloride 106 mmol/L (98-107); Estimated GFR-MDRD Greater than 90; Glucose 84 mg/dL (83-110); Magnesium 1.7 mg/dL (1.6-2.6); Potassium 3.9 mmol/L (3.5-5.1); Sodium 135 mmol/L (136-145)
[2018-10-14] MEDS ORDERED: Doxycycline 100 MG CAP PO SCH (09:00)
[2018-10-14] MEDS ORDERED: Metoprolol Tartrate 50 MG TAB PO SCH (09:00)
[2018-10-14] MEDS: Donepezil HCl 10 MG TAB PO SCH (09:02)
[2018-10-14] MEDS: Oseltamivir 75 MG CAP PO SCH (09:03)
[2018-10-14] MEDS: Acetaminophen 325 MG TAB PO PRN (09:03)
[2018-10-14] MEDS: Anastrozole 1 MG TAB PO SCH (09:03)
[2018-10-14] MEDS: Ascorbic Acid 500 mg Chewable Tablet PO SCH (09:03)
--- NOTE | 2018-10-14 09:45 | DIS ---
DATE OF ADMISSION: 10/12/2018 DATE OF DISCHARGE: 10/14/2018 PRIMARY CARE PHYSICIAN: Dr. Keys. DISCHARGE DISPOSITION: Home. PRIMARY DISCHARGE DIAGNOSES: 1. New onset transient atrial fibrillation converted to sinus rhythm. 2. Influenza A. 3. Demand ischemia of myocardium. SECONDARY DISCHARGE DIAGNOSES: 1. Recent diagnosis of invasive ductal carcinoma of breast, status post bilateral mastectomies. 2. Hypertension. 3. Emphysema. 4. Dementia. 5. Anemia of chronic disease. PRIMARY PROCEDURE/OPERATION: None. RADIOLOGICAL INVESTIGATION: CT angiography, negative for PE. Echocardiography result is pending. SIGNIFICANT LABORATORY DATA: WBC 4.3, hemoglobin 9.7, and platelets 242. D-dimer 5.95. Sodium 135, potassium 3.9, BUN 8, creatinine 0.72, and calcium 8.1. LFTs normal. Troponin 0.049. DISCHARGE MEDICATIONS: 1. Arimidex 1 mg p.o. daily. 2. Vitamin C 500 mg p.o. daily. 3. Aspirin 81 mg p.o. daily. 4. Aricept 10 mg p.o. b.i.d. 5. Multivitamin one tablet p.o. daily. 6. Tamiflu 75 mg p.o. b.i.d. to finish total 5 days of therapy. 7. Lopressor 50 mg p.o. b.i.d. 8. Doxycycline 100 mg p.o. b.i.d. for 7 days. CONTRAINDICATION: None. CODE STATUS: Full code. INPATIENT NEONATAL DOCTOR: Dr. Monte was following while in hospital. TEST RESULTS PENDING ON DISCHARGE: None. ALLERGIES: SHELLFISH. DISCHARGE PLAN: Posthospital, the patient will follow up with primary care physician in 1 or 2 weeks. The patient will follow up with Dr. Monte in 2 to 3 weeks. HOSPITAL COURSE: An 83-year-old female who has a history of invasive ductal carcinoma, required mastectomy and she had a drain in place. She was admitted by [facility]. Please see her H and P for further details. The patient was found with transient atrial fibrillation. She had elevated D-dimer which was probably related with cancer, but CT angio also done and which was negative for PE. During this hospitalization, the patient had elevated troponin, which was related with demand ischemia from atrial fibrillation. The patient converted to sinus rhythm after giving Cardizem. The patient was taking lisinopril for blood pressure and while in hospital, we noted that her blood pressure was running low and that is why we discontinued that medication and instead we changed to metoprolol for rate control. The patient was also having flu symptoms and that is why flu checked, and it was positive for influenza and that is why the patient was receiving Tamiflu while in hospital. On the day of discharge, the patient was still having low-grade fever that was related with her influenza as she has drain in place for surgical site. We also prescribed doxycycline for 7 days. The patient already has appointment with Dr. Heck on coming Monday for drain removal. At this point, the patient is in sinus rhythm. She is completely asymptomatic. I spoke with the patient's son at bedside, and he is thinking that the patient is up to her baseline level. I have seen and examined the patient at bedside today. PHYSICAL EXAMINATION: VITAL SIGNS: Currently, temperature is 100, pulse 80, respiratory rate 18, saturation 95% on room air, and blood pressure 105/55. Weight 164 pounds. GENERAL: The patient is currently alert, awake, no obvious acute distress. HEAD: Normocephalic, atraumatic. LUNGS: Clear to auscultation without any rhonchi or rales. CARDIAC: S1, S2. Regular without any murmur. ABDOMEN: Soft and benign without any tenderness. EXTREMITIES: No edema. The patient does have drain in the surgical site over brace. NEUROLOGIC: Nonfocal examination. REVIEW OF SYSTEMS: Reviewed with the patient. If Cardiology okay, then we will consider discharging her home later on today. Job ID: [id number]
[2018-10-14 12:20] VITALS: BP 91/51; TEMP 99
== END 2018-10-14 15:32 | disposition home or self-care (01) ==
LOC: ERS 19:21 → 2SW 22:25
PROVIDERS: ADMIT Hospitalist; ATTEND Hospitalist
DX: I48.91 Unspecified atrial fibrillation (principal); J09.X2 Influenza due to identified novel influenza A virus with other respiratory manifestations; I24.8 Other forms of acute ischemic heart disease; I10 Essential (primary) hypertension; J43.9 Emphysema, unspecified; F03.90 Unspecified dementia, unspecified severity, without behavioral disturbance, psychotic disturbance, mood disturbance, and anxiety; C51.9 Malignant neoplasm of vulva, unspecified; D63.8 Anemia in other chronic diseases classified elsewhere; Z85.3 Personal history of malignant neoplasm of breast; Z87.891 Personal history of nicotine dependence; Z90.13 Acquired absence of bilateral breasts and nipples; Z91.013 Allergy to seafood; Z79.82 Long term (current) use of aspirin; Z79.2 Long term (current) use of antibiotics; Z79.899 Other long term (current) drug therapy; Z98.890 Other specified postprocedural states
CPT/HCPCS: 71275; 80048; 80053; 82553 ×2; 83605; 83735 ×2; 83880; 84443; 84484 ×2; 85025 ×2; 85379; 90662; 93005; 93306; 96360; 96361 ×2; 99285; G0008; G0378 ×2; 36415; 90471; A4353; Q9966

== ENCOUNTER 2019-04-02 11:30 | Outpatient (CLI) | payer MEDICARE, MEDICAID ==
--- NOTE | 2019-04-02 14:50 | PET ---
EXAM: PET/CT HISTORY: Malignant neoplasm of the vulva with history of breast cancer TECHNIQUE: PET scanning with CT attenuation correction was performed from the base of the brain to the proximal thighs following the intravenous administration of 11.5 millicuries [id number]. COMPARISON: PET/CT dated August 10, 2018 FINDINGS: Biodistribution:The biodistribution for the exam appears acceptable. Head and neck: There is appropriate background activity within the brain. No hypermetabolic lymphaden opathy or masses identified. There is mild increased metabolic uptake seen within the region of the parotid and submandibular glan ds which is nonspecific. Thorax: No hypermetabolic pulmonary lesion, pleural effusion or lymphadenopathy is present. There is a sub-4 mm pulmonary nodule within the right lung apex which is stable. There is stable calcified lymph node within the mediastinum. Previously seen hypermetabolic right breast mass and right axillar y lymphadenopathy is no longer demonstrated. There is bilateral mastectomy changes and surgical clips within the right axillary region. No new hypermetabolic lymphadenopathy is evident. Abdomen and pelvis: There is expected background activity within the GI and systems. No hypermetab olic mass, lymphadenopathy or ascites is present. There is a focus of hypermetabolic activity seen in the expected region of the distal right ureter likely related to radiotracer activity within the r enal collecting systems. There are numerous unopacified bowel loops within this region limiting visualization of this region. No definite enlarged lymph node is evident along the iliac chain within the limitations of this noncontrast exam. There are a few shotty appearing lymph nodes seen within the inguinal regions without hypermetabolic uptake. No hypermetabolic activity is seen within the vul ananda region. There is background and GI activity seen within the bladder and rectal vault there Osseous structures and skin: No hypermetabolic skin or osseous lesion is identified. IMPRESSION: 1. Interval bilateral mastectomy and right axillary lymph node dissection. 2. No evidence of hypermetabolic metastatic disease. 3. No hypermetabolic activity is seen within the region of the vulva corresponding to the patient's v ulvar malignancy reported. 4. Focus of activity seen adjacent to the right common iliac vasculature is likely related to activit y within the distal right ureter. No definite enlarged lymph node is evident within this location. As a conservative measure a follow-up CT of the abdomen and pelvis utilizing IV and enteric contrast may be helpful to exclude the presence of a soft tissue mass or lymphadenopathy within this region.
== END 2019-04-02 11:31 | disposition home or self-care (01) ==
LOC: PET 11:30
PROVIDERS: ATTEND Obstetrics & Gynecology Gynecologic Oncology
DX: C51.9 Malignant neoplasm of vulva, unspecified (principal); Z90.13 Acquired absence of bilateral breasts and nipples
CPT/HCPCS: 78815; A9552

== ENCOUNTER 2020-05-07 10:48 | Outpatient (CLI) | payer MEDICARE, MEDICAID ==
--- NOTE | 2020-05-07 12:47 | PET ---
PET SCAN WITH CT ATTENUATION CORRECTION: HISTORY: Malignant neoplasm of vulva, unspecified. New-onset vaginal bleeding. COMPARISON: 04/02/2019. TECHNIQUE: PET scan with CT attenuation correction was performed from the base of the brain to the proximal thig hs following the intravenous administration of 12 mCi of [id number]. FINDINGS: Head and neck: No abnormal FDG localization. Chest: No abnormal FDG localization in the mediastinum, axilla or lung parenchyma. CT used for attenu ation correction demonstrates minimal dependent atelectatic changes. Abdomen and pelvis: No abnormal FDG localization in the abdomen. There is a hypermetabolic left external iliac lymph node with a maximum SUV of 8.0. Hypermetabolic left inguinal lymph nodes with a maximum SUV of 6.3 and 7.3. No abnormal FDG avidity a t the level of the vulva. Osseous structures: No abnormal FDG localization. IMPRESSION: 1. Interval hypermetabolic lymph nodes in the left hemipelvis along the external iliac chain as well as the left inguinal region. Lymphadenopathy is worrisome for metastases. 2. No evidence of a hypermetabolic focus in the expected region of the vulva. CODE T Transcribed Date/Time: 05/07/2020 12:59 PM
== END 2020-05-07 10:49 | disposition home or self-care (01) ==
LOC: PET 10:48
PROVIDERS: ATTEND Nurse Practitioner Family
DX: C51.9 Malignant neoplasm of vulva, unspecified (principal); N93.9 Abnormal uterine and vaginal bleeding, unspecified; R10.2 Pelvic and perineal pain; R59.0 Localized enlarged lymph nodes
CPT/HCPCS: 78815; A9552

== ENCOUNTER 2020-07-02 07:50 | Outpatient (CLI) | payer MEDICARE, MEDICAID ==
--- NOTE | 2020-07-02 11:12 | PET ---
PET SCAN WITH CT ATTENUATION CORRECTION: HISTORY: Malignant neoplasm of the vulva, unspecified. TECHNIQUE: PET scan with attenuation correction is performed from the skull base to the proximal thighs followin g the intravenous administration of 11.1 mCi of [id number]. FINDINGS: HEAD AND NECK: No abnormal FDG localization. CHEST: There is no abnormal FDG localization. CT used for attenuation correction demonstrates a nonhypermeta bolic 4 mm nodule in the right upper lobe, nonhypermetabolic 0.9 cm nodule in the middle lobe, 2 separate 0.9 cm nodules in the left lower lobe. These nodules have a maximum SUV less than 2.5. Addit ional smaller nonhypermetabolic nodules are noted throughout the lung parenchyma. Correlation made with CT used for attenuation correction of 05/07/2020 demonstrates essentially stable lung parenchymal nodules. ABDOMEN AND PELVIS: Hypermetabolic nodule in the left external iliac chain with a maximum SUV of 6.4, previously with a m aximum SUV of 8.4. There are no new areas of abnormal FDG localization in the left or right hemipelvis. There is FDG avidity associated with hypermetabolic left inguinal lymph nodes with a maxi mum SUV of 9.3, previously with a maximum SUV of 6.2. On the CT used for attenuation correction, the left inguinal lymph nodes have increased in size. There are 2 adjacent lymph nodes that measure 2 .2 x 0.9 cm. Previously, there was a single slightly upper normal lymph node in this region measuring 0.9 x 0.7 cm. At the level of the vulva, there is no evidence of dermal or subdermal FDG avidity. Osseous structures do not demonstrate any abnormal FDG localization IMPRESSION: 1. Mixed response to therapy. The overall degree of pelvic lymphadenopathy is similar to the previous exam. However, the left inguinal lymph nodes appear to have increased fluorodeoxyglucose avidity when compared to the previous exam. Left external iliac lymph nodes appear to have decreased fluorode oxyglucose avidity. There are no new lesions in the pelvis. 2. Redemonstration of multiple nonhypermetabolic lung parenchymal nodules. Transcribed Date/Time: 07/02/2020 11:31 AM
== END 2020-07-02 07:51 | disposition home or self-care (01) ==
LOC: PET 07:50
PROVIDERS: ATTEND Obstetrics & Gynecology Gynecologic Oncology
DX: C51.9 Malignant neoplasm of vulva, unspecified (principal); R91.8 Other nonspecific abnormal finding of lung field; R59.0 Localized enlarged lymph nodes
CPT/HCPCS: 78815; A9552

== ENCOUNTER 2020-08-28 09:44 | Outpatient (CLI) | payer MEDICARE, MEDICAID ==
--- NOTE | 2020-08-28 12:07 | PET ---
Radionucleotide PET scan with CT attenuation correction HISTORY: Malignant neoplasm of vulva. Restaging. COMPARISON: 07/02/2020 and 05/07/2020. FINDINGS: Please note that for the purposes of this exam, the SUV values for the current and previous exams gurdeep l be reported based on QCLR calculation. Non-hypermetabolic subcentimeter nodules within the lungs are unchanged in appearance. Activity associated with nonenlarged mediastinal lymph nodes has increased slightly: Right paratracheal max SUV 3.5 (previously 3.1) Right hilum 3.3 (2.9) Left hilum 3.4 (3.2) Subcarinal 4.8 (3.8) The hypermetabolic lymph node along the lower left internal iliac chain again (abutting the medial reena ny side wall) again shows activity max SUV 6.8 (previously 8.0). Immediately superior to this, a 1.6 cm x 1.0 cm nodule/lymph node, not necessarily larger than on the prior study, now shows radiotra cer accumulation max SUV 13.8. No abnormality was evident at this location on the most recent 2 exams. Lobular left inguinal adenopathy now shows max SUV 15.5 (previously 12.6) IMPRESSION : Newly hypermetabolic left internal iliac lymph node that lies immediately superior to the stable node . Very slight interval increase in relative activity associated with the left inguinal adenopathy and n onenlarged mediastinal lymph nodes.
== END 2020-08-28 09:45 | disposition home or self-care (01) ==
LOC: PET 09:44
PROVIDERS: ATTEND Obstetrics & Gynecology Gynecologic Oncology
DX: C51.9 Malignant neoplasm of vulva, unspecified (principal); R59.0 Localized enlarged lymph nodes
CPT/HCPCS: 78815; A9552

== ENCOUNTER 2020-11-15 20:20 | Emergency (ER) | payer MEDICARE, MEDICAID | END 2020-11-15 23:55 | disposition home or self-care (01) | LOC: ERS 20:20 | DX: M79.662 Pain in left lower leg (principal); R22.42 Localized swelling, mass and lump, left lower limb; I48.91 Unspecified atrial fibrillation; I10 Essential (primary) hypertension; F03.90 Unspecified dementia, unspecified severity, without behavioral disturbance, psychotic disturbance, mood disturbance, and anxiety; J43.9 Emphysema, unspecified; M19.90 Unspecified osteoarthritis, unspecified site; Z87.891 Personal history of nicotine dependence; Z79.899 Other long term (current) drug therapy; Z79.82 Long term (current) use of aspirin ==

== ENCOUNTER 2020-11-23 19:38 | Inpatient (IN) | payer MEDICARE, OTHER ==
[~2020-11-23 19:38] MED LIST changes: -ISOVUE-370 76%-LOCM 1 ML ONE; +Iopamidol-370 76% 500 ML 1 ML ONE
[2020-11-23] MEDS ORDERED: Ketorolac Tromethamine 30 MG/ML VIAL ONE (21:05)
[2020-11-23 21:24] LABS: ALT (SGPT) 7 U/L (8-55); AST (SGOT) 12 U/L (5-34); Albumin 3.7 g/dL (3.4-4.8); Alkaline Phosphatase 48 U/L (40-110); Anion Gap 13 mmol/L (10-20); BUN (Urea Nitrogen) 17 mg/dL (9.8-20.1); Bilirubin, Total 0.3 mg/dL (0.2-1.2); Calc. Creatinine Clearance 0 mL/min (70-130); Calcium 10.3 mg/dL (7.8-10.44); Carbon Dioxide 29 mmol/L (23-31); Chloride 101 mmol/L (98-107); Globulin 4.1 g/dL (2.4-3.5); Glucose 115 mg/dL (83-110); Potassium 4.5 mmol/L (3.5-5.1); Protein, Total 7.8 g/dL (5.8-8.1); Sodium 138 mmol/L (136-145)
[2020-11-23 21:28] LABS: Band 4 % (5-11); Eosinophils 1 % (0-10); Hemoglobin 11.1 g/dL (12.0-16.0); Lymphocytes 15 % (21-51); MDiff Complete? YES; Mean Corpuscular HGB CONC 32.5 g/dL (32.0-36.0); Mean Corpuscular Hemoglobin 29.9 pg (27.0-31.0); Mean Corpuscular Volume 92.2 fL (78.0-98.0); Mean Platelet Volume 7.2 fL (7.4-10.4); Monocytes 3 % (0-10); Neutrophil 76 % (42-75); Platelet Count 289 thou/uL (130-400); RBC Distribution Width 13.6 % (11.5-14.5); Red Blood Cell (RBC) Count 3.71 mill/uL (4.20-5.40); White Blood Cell (WBC) Count 9.8 thou/uL (4.8-10.8)
[2020-11-23] MEDS ORDERED: Enoxaparin Sodium 80 MG/0.8 ML SYRINGE ONE (23:14)
[2020-11-24] MEDS ORDERED: Ondansetron ODT 4 MG TAB PO PRN (02:05)
[2020-11-24] MEDS ORDERED: Ondansetron PF 4 MG/2 ML Vial IVP PRN (02:05)
[2020-11-24] MEDS ORDERED: Acetaminophen/Codeine 30-300mg Tablet PO PRN (02:07)
[2020-11-24 03:50] VITALS: BMI 25.0
[2020-11-24 06:31] LABS: Hemoglobin 9.9 g/dL (12.0-16.0); Mean Corpuscular HGB CONC 31.7 g/dL (32.0-36.0); Mean Corpuscular Hemoglobin 29.3 pg (27.0-31.0); Mean Corpuscular Volume 92.3 fL (78.0-98.0); Mean Platelet Volume 7.4 fL (7.4-10.4); Platelet Count 272 thou/uL (130-400); RBC Distribution Width 13.8 % (11.5-14.5); Red Blood Cell (RBC) Count 3.38 mill/uL (4.20-5.40); White Blood Cell (WBC) Count 7.4 thou/uL (4.8-10.8)
[2020-11-24 06:47] LABS: INR-International Normal Ratio 1.6; PTT 57.4 sec (22.9-36.1)
[2020-11-24 06:57] LABS: Anion Gap 14 mmol/L (10-20); BUN (Urea Nitrogen) 18 mg/dL (9.8-20.1); Calc. Creatinine Clearance 71 mL/min (70-130); Calcium 9.9 mg/dL (7.8-10.44); Carbon Dioxide 27 mmol/L (23-31); Chloride 101 mmol/L (98-107); Glucose 90 mg/dL (83-110); Potassium 4.1 mmol/L (3.5-5.1); Sodium 138 mmol/L (136-145)
[2020-11-24] MEDS: Aspirin 81 mg Enteric Coated Tablet PO SCH (07:47)
[2020-11-24] MEDS: Metoprolol Tartrate 50 MG TAB PO SCH ×2 (07:47→20:50)
[2020-11-24] MEDS: Donepezil HCl 10 MG TAB PO SCH ×2 (07:48→20:50)
[2020-11-24] MEDS: Famotidine 20 MG TAB PO SCH ×2 (07:48→20:50)
[2020-11-24 08:33] LABS: Band 1 % (5-11); Eosinophils 2 % (0-10); Hypochromia SLIGHT = 6-15 cells (100X) (0-5/hpf); Lymphocytes 20 % (21-51); MDiff Complete? YES; Monocytes 9 % (0-10); Neutrophil 68 % (42-75); Platelet Morphology Comment Appears Adequate; Polychromasia SLIGHT = 2-3 cells (100X) (0-2/hpf)
[2020-11-24] MEDS ORDERED: Famotidine/PF 20 mg/2ml Vial SLOW IVP SCH (09:00)
[2020-11-24] MEDS ORDERED: Non-Formulary Item 1 EACH (Mirtazapine [Mirtazapine] 7.5 MG Tablet) PO SCH (09:00)
[2020-11-24] MEDS: Mirtazapine 15 MG TAB PO SCH (10:38)
[2020-11-24] MEDS: Anastrozole 1 MG TAB PO SCH (10:38)
[2020-11-24] MEDS ORDERED: Enoxaparin Sodium 80 MG/0.8 ML SYRINGE SC SCH (12:00)
[2020-11-24] MEDS: Acetaminophen 325 MG TAB PO PRN ×2 (15:31→20:58)
[2020-11-24] MEDS: traZODone HCl 50 MG TAB PO SCH (20:51)
[2020-11-25 06:03] LABS: #Eosinphils 0.1 thou/uL (0.0-0.7); #Lymphocytes 0.9 thou/uL (1.20-3.40); #Monocytes 0.7 thou/uL (0.11-0.59); #Neutrophils 5.6 thou/uL (1.40-6.50); %Basophils 0.3 % (0.0-1.0); %Lymphocytes 11.9 % (21.0-51.0); %Monocytes 9.2 % (0.0-10.0); %Neutrophils 77.6 % (42.0-75.0); Hemoglobin 9.6 g/dL (12.0-16.0); Mean Corpuscular HGB CONC 31.1 g/dL (32.0-36.0); Mean Corpuscular Hemoglobin 28.5 pg (27.0-31.0); Mean Corpuscular Volume 91.6 fL (78.0-98.0); Mean Platelet Volume 7.4 fL (7.4-10.4); Platelet Count 282 thou/uL (130-400); RBC Distribution Width 13.4 % (11.5-14.5); Red Blood Cell (RBC) Count 3.36 mill/uL (4.20-5.40); White Blood Cell (WBC) Count 7.2 thou/uL (4.8-10.8)
[2020-11-25 06:27] LABS: Anion Gap 13 mmol/L (10-20); BUN (Urea Nitrogen) 13 mg/dL (9.8-20.1); Calc. Creatinine Clearance 77 mL/min (70-130); Carbon Dioxide 26 mmol/L (23-31); Chloride 99 mmol/L (98-107); Glucose 91 mg/dL (83-110); Potassium 3.9 mmol/L (3.5-5.1); Sodium 134 mmol/L (136-145)
[2020-11-25] MEDS: Acetaminophen 325 MG TAB PO PRN ×2 (06:32→20:12)
[2020-11-25] MEDS: Mirtazapine 15 MG TAB PO SCH (08:22)
[2020-11-25] MEDS: Famotidine 20 MG TAB PO SCH ×2 (08:22→20:09)
[2020-11-25] MEDS: Aspirin 81 mg Enteric Coated Tablet PO SCH (08:22)
[2020-11-25] MEDS: Metoprolol Tartrate 50 MG TAB PO SCH ×2 (08:23→20:09)
[2020-11-25] MEDS: Donepezil HCl 10 MG TAB PO SCH ×2 (08:23→20:09)
[2020-11-25] MEDS: Anastrozole 1 MG TAB PO SCH (08:24)
[2020-11-25] MEDS ORDERED: Rivaroxaban 10 MG TAB PO SCH ×2 (09:45→17:00)
[2020-11-25 13:31] LABS: SARS-CoV-2 PCR by NAA Not Detected (NotDetected)
[2020-11-25] MEDS: traZODone HCl 50 MG TAB PO SCH (20:09)
[2020-11-26 05:22] VITALS: TEMP 98.6
[2020-11-26 07:01] VITALS: BP 104/65
[2020-11-26] MEDS ORDERED: Rivaroxaban 10 MG TAB PO SCH ×2 (07:45→18:00)
[2020-11-26] MEDS: Acetaminophen 325 MG TAB PO PRN (08:43)
[2020-11-26] MEDS: Donepezil HCl 10 MG TAB PO SCH (08:44)
[2020-11-26] MEDS: Aspirin 81 mg Enteric Coated Tablet PO SCH (08:44)
[2020-11-26] MEDS: Famotidine 20 MG TAB PO SCH (08:44)
[2020-11-26] MEDS: Mirtazapine 15 MG TAB PO SCH (08:44)
[2020-11-26] MEDS: Metoprolol Tartrate 50 MG TAB PO SCH (08:44)
[2020-11-26] MEDS: Anastrozole 1 MG TAB PO SCH (08:46)
== END 2020-11-26 13:46 | DRG 300 ==
LOC: ERS 19:38 → T4-B 11-24 02:18 → INTOOBSV 11-24 02:18 → OBSVTOIN 11-26 08:11
PROVIDERS: ADMIT Student in an Organized Health Care Education/Training Program; ATTEND Internal Medicine
DX: I82.412 Acute embolism and thrombosis of left femoral vein (principal); N13.30 Unspecified hydronephrosis; E87.1 Hypo-osmolality and hyponatremia; F03.90 Unspecified dementia, unspecified severity, without behavioral disturbance, psychotic disturbance, mood disturbance, and anxiety; M19.90 Unspecified osteoarthritis, unspecified site; I10 Essential (primary) hypertension; Z87.891 Personal history of nicotine dependence; Z91.048 Other nonmedicinal substance allergy status; Z91.013 Allergy to seafood; Z90.13 Acquired absence of bilateral breasts and nipples; Z85.3 Personal history of malignant neoplasm of breast; Z79.82 Long term (current) use of aspirin; Z79.899 Other long term (current) drug therapy; R19.00 Intra-abdominal and pelvic swelling, mass and lump, unspecified site; J43.9 Emphysema, unspecified; H35.30 Unspecified macular degeneration; I48.0 Paroxysmal atrial fibrillation; D64.9 Anemia, unspecified; C51.9 Malignant neoplasm of vulva, unspecified; Z20.822 Contact with and (suspected) exposure to COVID-19
CPT/HCPCS: 36415; 74177; 80048; 80053; 85025; 85610; 85730; 87635; 96372; 96374; 96375; G0378; J1650; J1885; J2405; Q9967; S0028; U0003; U0005